=== PATIENT | female | born 1970 | race African-American/Black ===

== ENCOUNTER 2020-03-10 04:05 | Emergency (ER) | payer MEDICAID ==
[~2020-03-10] VITALS: Ht 162.6 cm; Wt 55.0 kg
[2020-03-10 04:11] VITALS: BP 116/80
[2020-03-10] MEDS ORDERED: CLINDAMYCIN 600 MG in DEXTROSE 5% WATER 50 ML IV ONE (05:00)
[2020-03-10] MEDS ORDERED: ACETAMINOPHEN 325MG TABLET PO ONE (05:15)
[2020-03-10] MEDS ORDERED: CLINDAMYCIN 600MG PREMIX 50 ML IV ONE (05:15)
[2020-03-10] MEDS ORDERED: CLINDAMYCIN 600MG PREMIX 50 ML IV SCH (05:15)
[2020-03-10] MEDS ORDERED: BACITRACIN ZINC OINT UDPKT TOP ONE (05:45)
== END 2020-03-10 10:10 | disposition home or self-care (01) ==
LOC: ER 04:05
DX: L03.113 Cellulitis of right upper limb (principal); I10 Essential (primary) hypertension; Z59.0 Homelessness
CPT/HCPCS: 96365; 99284; J3490; 99283

== ENCOUNTER 2020-03-12 00:02 | Emergency (ER) | payer MEDICAID ==
[~2020-03-12] VITALS: Ht 162.6 cm; Wt 68.0 kg
[2020-03-12] MEDS ORDERED: KETOROLAC 30MG/ML VIAL IV STA ×2 (03:11→05:08)
[2020-03-12] MEDS ORDERED: SODIUM CHLORIDE 0.9% 1,000 ML IV ONE ×2 (03:11→04:42)
[2020-03-12] MEDS ORDERED: ONDANSETRON HCL 4MG/2ML INJ IV STA (03:11)
[2020-03-12 03:30] LABS: BASOPHILS % 0.4 % (0.0-2.0); EOSINOPHILS % 0.5 % (0.0-5.0); HEMOGLOBIN. 11.2 g/dL (12.0-16.0); LYMPHOCYTES % 21.7 % (20.0-50.0); MEAN CORPUSCULAR HEMOGLOBIN 30.9 pg (28.0-32.0); MEAN PLATELET VOLUME 8.3 fl (7.4-10.4); MONOCYTES % 5.5 % (2.0-8.0); NEUTROPHILS % 71.9 % (40.0-76.0); PLATELET 255 x1000/uL (130-400); RED BLOOD CELL COUNT 3.61 mill/uL (4.2-5.4); RED CELL DISTRIBUTION WIDTH 14.3 % (11.6-14.6)
[2020-03-12 03:36] LABS: CHLORIDE 108 mEq/L (98-107)
[2020-03-12 03:40] LABS: ETHANOL BLOOD 229 mg/dL
[2020-03-12 05:05] LABS: CLARITY URINE CLEAR (CLEAR); COLOR URINE YELLOW (YELLOW); KETONES URINE NEGATIVE (NEGATIVE); LEUKOCYTE ESTERASE URINE TRACE (NEGATIVE); NITRITE URINE NEGATIVE (NEGATIVE); OCCULT BLOOD URINE NEGATIVE (NEGATIVE); PH URINE 5.5 (4.5-8.0); PROTEIN URINE NEGATIVE (NEGATIVE); SPECIFIC GRAVITY URINE 1.014 (1.005-1.030); UROBILINOGEN URINE 0.2 E.U./dL (0.2-1.0)
[2020-03-12 05:14] LABS: *AMPHETAMINES SCREEN URINE NEGATIVE (NEGATIVE); *BARBITURATES SCREEN URINE NEGATIVE (NEGATIVE); *BENZODIAZEPINES SCREEN URINE NEGATIVE (NEGATIVE)
[2020-03-12 05:15] LABS: *COCAINE SCREEN URINE NEGATIVE (NEGATIVE); CANNABINOID URINE SCREEN NEGATIVE (NEGATIVE); METHADONE URINE SCREEN NEGATIVE (NEGATIVE); OPIATES URINE SCREEN NEGATIVE (NEGATIVE); PHENCYCLIDINE URINE SCREEN NEGATIVE (NEGATIVE)
[2020-03-12 08:25] VITALS: BP 115/73
== END 2020-03-12 08:30 | disposition home or self-care (01) ==
LOC: ER 00:02
DX: L02.413 Cutaneous abscess of right upper limb (principal); F10.129 Alcohol abuse with intoxication, unspecified; Y90.7 Blood alcohol level of 200-239 mg/100 ml; M25.511 Pain in right shoulder; I10 Essential (primary) hypertension; Z59.0 Homelessness
CPT/HCPCS: 36415; 80053; 80305; 80320; 81003; 85025; 87070; 87205; 96374; 96375; 99285; J1885; J2405; J7030; G0480